=== PATIENT | male | born 2000 | race Caucasian/White ===

== ENCOUNTER 2018-08-15 16:37 | Emergency (ER) | payer OTHER ==
[~2018-08-15] VITALS: Ht 193 cm; Wt 97.9 kg
[2018-08-15 16:38] VITALS: BP 146/74
== END 2018-08-15 17:31 | disposition home or self-care (01) ==
LOC: M ED 16:37
DX: S30.810A Abrasion of lower back and pelvis, initial encounter (principal); S30.0XXA Contusion of lower back and pelvis, initial encounter; W20.8XXA Other cause of strike by thrown, projected or falling object, initial encounter; Y92.89 Other specified places as the place of occurrence of the external cause; Y99.1 Military activity

== ENCOUNTER 2019-03-14 05:53 | Emergency (ER) | payer OTHER ==
[~2019-03-14] VITALS: Ht 188 cm; Wt 97.7 kg
[2019-03-14] MEDS ORDERED: PEPT262T2 PO (05:59)
[2019-03-14] MEDS ORDERED: PSEU120T32 PO (05:59)
[2019-03-14] MEDS ORDERED: ACET-908 PO (05:59)
[2019-03-14] MEDS ORDERED: ONDANSETRON 4MG/2ML VIAL (J2405) IV PRN (06:30)
[2019-03-14] MEDS ORDERED: NS 1,000 ML IV ONE (06:30)
[2019-03-14] MEDS ORDERED: KETOROLAC 30 MG/ML VIAL (J1885) IV ONE (06:30)
[2019-03-14 06:51] LABS: BASO % 0.2 % (0.0-1.0); EOS # 0.1 10^3/uL (0.0-0.5); EOS % 0.5 % (0.0-3.0); HEMATOCRIT 43.3 % (42.0-52.0); HEMOGLOBIN 14.3 g/dl (13.5-17.5); LYMPH # 1.6 10^3/uL (1.5-5.0); LYMPH % 13.2 % (24.0-44.0); MEAN CORPUSCULAR HEMOGLOBIN 31.5 pg (27.0-33.0); MEAN CORPUSCULAR VOLUME 95.4 fl (80.0-96.0); MONO # 1.2 10^3/uL (0.0-0.8); MONO % 10.2 % (0.0-5.0); NEUTROPHILS # 8.9 10^3/uL (1.5-8.5); NEUTROPHILS % 75.6 % (36.0-66.0); PLATELET COUNT, AUTOMATED 180 10^3/uL (150-450); RED BLOOD COUNT 4.54 10^6/uL (4.30-6.10); WHITE BLOOD COUNT 11.7 10^3/uL (4.0-10.0)
[2019-03-14 07:13] LABS: BLOOD UREA NITROGEN 8 MG/DL (7-18); CALCIUM LEVEL 8.8 MG/DL (8.5-10.1); CARBON DIOXIDE LEVEL 29 MEQ/L (21-32); CHLORIDE LEVEL 105 MEQ/L (98-107); CREATININE FOR GFR 1.13 MG/DL (0.70-1.30); GLUCOSE, FASTING 93 MG/DL (70-100); POTASSIUM SERUM 4.3 MEQ/L (3.5-5.1); SODIUM LEVEL 138 MEQ/L (136-145)
[2019-03-14 07:16] LABS: INFLUENZA A AMPLIFICATION NEGATIVE (NEGATIVE); INFLUENZA B AMPLIFICATION NEGATIVE (NEGATIVE)
[2019-03-14] MEDS ORDERED: ONDA4TAB6 PO (08:02)
[2019-03-14 08:12] VITALS: BP 130/62
== END 2019-03-14 08:20 | disposition home or self-care (01) ==
LOC: M ED 05:53
DX: B34.9 Viral infection, unspecified (principal)
CPT/HCPCS: 80048; 85025; 87502; 87880; 96361; 96374; 96375; 99284; J1885; J2405